=== PATIENT | female | born 1970 | race African-American/Black ===

== ENCOUNTER 2023-03-09 10:39 | Emergency (ER) | payer OTHER, SELFPAY ==
[2023-03-09 10:46] VITALS: BP 190/133
[2023-03-09 10:54] VITALS: BP 175/132
--- NOTE | 2023-03-09 11:07 | ED.GENMED ---
History of Present Illness
<Sara Dennison PA-C - Last Filed: 03/09/23 15:07>
General
Chief Complaint: Blood Pressure Problem
Source: patient
Exam Limitations: none
Time Seen by Provider: 03/09/23 11:07
Nursing documentation reviewed up to this point in time: agreed with
Travel History
Have you had any contact with someone who has COVID-19?: No
Do you have any symptoms of coronavirus? Fever > 100 degrees, chills, cough, shortness of breath, sore throat, loss of taste or smell, muscle aches, or headache?: No
History of Present Illness
History of Present Illness:
This is a 52-year-old female with no past medical history presenting emergency department today sent by her PCP for concerns of high blood pressure and tachycardia. Patient states that she went in for her yearly visit today when they noticed that
her blood pressure was in the 190s over the 130s with associated tachycardia. Patient states that she has intermittent headaches for the past few days as well as shortness of breath on exertion. Patient states that she has gained a lot of weight
in the past 2 years and states that anytime she is exert herself does have shortness of breath and feels it is related to her waking. At rest, she feels well. She currently admits to a mild headache, however these headaches usually improve when
she puts her glasses on. She denies chest pain, back pain,, dizziness, lightheadedness, recent syncopal episodes, nausea, vomiting. Does admit to some recent congestion and coughing, she states that she picked up something that her had.
She takes no medications daily and has no known drug allergies. She sees Sosa Peterson NP for primary care.
Review of Systems
<Sara Dennison PA-C - Last Filed: 03/09/23 15:07>
Review of Systems
All Other Systems: ROS reviewed and negative except as documented in HPI and ROS
Phy Exam
<Sara Dennison PA-C - Last Filed: 03/09/23 15:07>
Physical Exam
Physical Exam:
General: Patient appears well and is no acute distress
Skin: Skin is warm and dry, no rashes or lesions
HEENT: Head is normocephalic and atraumatic. No pharyngeal erythema, no tonsillar hypertrophy. No lymphadenopathy.
Cardiac: Tachycardia however regular rhythm and no murmurs
Pulm: normal respiratory effort, lung sounds are clear to auscultation bilaterally with no wheezes, rales, rhonchi
Peripheral vascular: Patient 2+ radial pulses bilaterally. 2+ dorsalis pedis pulses and posterior tibial pulses bilaterally. No lower extremity edema.
Neuro: AAOx3. CN II-XII intact. No involuntary movements noted, heel to curiel, finger to nose testing intact.
Course
<DEWEY Hernandez Last Filed: 03/09/23 15:07>
Orders/Labs/Results
Orders:
Orders
03/09/23 11:01
EKG [Electrocardiogram (*1)] Urgent
Reason for Study: Tachycardia
EKG- Treatment ONCE
03/09/23 11:25
Cardiac Monitoring- Treatment ONCE
Labetalol HCl [Trandate] 10 mg IV NOW STA
03/09/23 11:30
Labetalol HCl [Trandate] 20 mg .ROUTE .STK-MED ONE
03/09/23 11:32
CR Chest - 2 Views Urgent
Comment:
Reason For Exam: shortness of breath
03/09/23 11:37
CT Head W/o Iv Contrast Urgent
Comment:
Reason For Exam: headache, HTN
03/09/23 11:43
Complete Blood Count/With Diff Urgent
Comprehensive Metabolic Panel Urgent
Troponin I Urgent
03/09/23 11:46
Metoprolol [Lopressor] 25 mg PO NOW STA
Abnormal Lab Results
03/09/23
11:43
Hgb 11.7 L g/dL
(12.0-16.0)
Hct 36.1 L %
(37.0-47.0)
MCH 26.5 L pg
(27.0-31.0)
MCHC 32.4 L g/dL
(33.0-37.0)
RDW 15.9 H %
(11.5-14.5)
Plt Count 405 H 10^3/uL
(130-400)
Absolute Monos (auto) 0.8 H 10^3/uL
(0.1-0.6)
Lymphocytes % 18.0 L %
(20.5-51.1)
Monocytes % 11.2 H %
(1.7-9.3)
Glucose 114 H mg/dl
(70-99)
AST 412 H U/L
(14-36)
ALT 285 H U/L
(0-35)
03/09/23 11:43
03/09/23 11:43
Vital Signs
Initial and Last Documented VS:
Initial Vital Signs
Temp Pulse Resp BP Pulse Ox
98.3 F 96 18 190/133 98
03/09/23 10:46 03/09/23 10:46 03/09/23 10:46 03/09/23 10:46 03/09/23 10:46
Last Documented Vital Signs
Temp Pulse Resp BP Pulse Ox
98.8 F 87 20 159/99 97
03/09/23 10:54 03/09/23 13:15 03/09/23 13:15 03/09/23 12:30 03/09/23 13:15
<Montana Workman, DO - Last Filed: 03/09/23 15:41>
Orders/Labs/Results
Orders:
Orders
03/09/23 11:01
EKG [Electrocardiogram (*1)] Urgent
Reason for Study: Tachycardia
EKG- Treatment ONCE
03/09/23 11:25
Cardiac Monitoring- Treatment ONCE
Labetalol HCl [Trandate] 10 mg IV NOW STA
03/09/23 11:30
Labetalol HCl [Trandate] 20 mg .ROUTE .STK-MED ONE
03/09/23 11:32
CR Chest - 2 Views Urgent
Comment:
Reason For Exam: shortness of breath
03/09/23 11:37
CT Head W/o Iv Contrast Urgent
Comment:
Reason For Exam: headache, HTN
03/09/23 11:43
Complete Blood Count/With Diff Urgent
Comprehensive Metabolic Panel Urgent
Troponin I Urgent
03/09/23 11:46
Metoprolol [Lopressor] 25 mg PO NOW STA
Abnormal Lab Results
03/09/23
11:43
Hgb 11.7 L g/dL
(12.0-16.0)
Hct 36.1 L %
(37.0-47.0)
MCH 26.5 L pg
(27.0-31.0)
MCHC 32.4 L g/dL
(33.0-37.0)
RDW 15.9 H %
(11.5-14.5)
Plt Count 405 H 10^3/uL
(130-400)
Absolute Monos (auto) 0.8 H 10^3/uL
(0.1-0.6)
Lymphocytes % 18.0 L %
(20.5-51.1)
Monocytes % 11.2 H %
(1.7-9.3)
Glucose 114 H mg/dl
(70-99)
AST 412 H U/L
(14-36)
ALT 285 H U/L
(0-35)
03/09/23 11:43
03/09/23 11:43
Vital Signs
Initial and Last Documented VS:
Initial Vital Signs
Temp Pulse Resp BP Pulse Ox
98.3 F 96 18 190/133 98
03/09/23 10:46 03/09/23 10:46 03/09/23 10:46 03/09/23 10:46 03/09/23 10:46
Last Documented Vital Signs
Temp Pulse Resp BP Pulse Ox
98.8 F 87 20 159/99 97
03/09/23 10:54 03/09/23 13:15 03/09/23 13:15 03/09/23 12:30 03/09/23 13:15
<Sara Dennison PA-C - Last Filed: 03/09/23 15:07>
MDM/Problems Addressed
Differential Diagnosis Includes:
ddx: ACS, tension headache, pneumonia, migraine headache
MDM/Problems Addressed:
Headache
Dyspnea on exertion
High blood pressure
Tachycardia
Chronic conditions affecting care:
N/A
Acute Exacerbation and/or Progression of Chronic Illness:
N/A
<Sara Dennison PA-C - Last Filed: 03/09/23 15:07>
*Pulse Oximetry
Patient hypoxic: no
*EKG
Interpreted by ED Provider?: Yes
EKG Intrepretation Date: 03/09/23
Interpretation: abnormal
Comparison EKG: no comparison EKG present
Heart Rate: 109
Rate: tachycardiac
Rhythm: sinus
[place]: normal axis
Interval: normal interval
QRS Pattern: normal QRS
Ischemia: no ischemia
*Rechecker Interpretation
Rate: tachycardiac
Interpretation: abnormal
Heart Rate: 105
Rhythm: sinus
*Critical Care Note
Total Time (30-74mins, 75-104mins- exclusive of procedures): Not Applicable
Data Reviewed
Review of Other/Old Records Reveals: Records (No previous records to review)
Prescriptions/Medications Considered But Not Given:
n/a
Further Testing Considered But Not Given:
n/a
<Sara Dennison PA-C - Last Filed: 03/09/23 15:07>
Patient Management
Escalation/DeEscalation of care consider admission/obs:
This is a 52-year-old female with no past medical history presenting today from a wellness visit with her primary care provider with high blood pressure and tachycardia. Patient states that she also has been having intermittent headaches and
shortness of breath on exertion for the past few months. She denies palpitations. She denies fevers or chills. Her physical examination reveals tachycardia. Her CBC/CMP reveal no signs of end organ damage. Her CT scan of the head reveals no acute
abnormality. Her EKG shows no ischemic changes. Here in the emergency department, her blood pressure was initially 190/133 and her heart rate was 96. Her pressure came down to 159/99 and her heart rate 87 after a dose of metoprolol. Patient states
that she does have a follow-up appointment with her PCP next week. We will start her on metoprolol daily, and advised her to return if she starts to have chest pain, shortness of breath, changes to her vision, decreased urinary output, dizziness,
lightheadedness, or other concerning signs or symptoms.
<Sara Dennison PA-C - Last Filed: 03/09/23 15:07>
Update Note
Update Note:
11:15 am-- intially evaluated patient
ED Attending Note
<Sara Dennison PA-C - Last Filed: 03/09/23 15:07>
-
Portions of this chart may have been created with voice recognition software.� Occasional wrong word or��sound alike� substitutions may have occurred due to the inherent limitations of voice recognition software.
<[place] Workman, DO - Last Filed: 03/09/23 15:41>
ED Attending Note
Patient seen and examined by attending physician: Yes
I performed the substantive portion of visit, reviewed & personally made and approve the management plan that is documented in note by myself or ALEX.: Yes
I performed a history and physical exam of patient and discussed management with resident, I reviewed resident's note and agree with documented findings and plan of care.: Yes
ED Attending Note:
I have reviewed and agree with history and treatment plan by Sara Dennison. My exam revealed
Physical Exam
General: no apparent distress, not acutely ill, blood pressure 159/99
Neck: supple. no meningeal signs. normal posterior pharynx
Heart: s1/s2 regular rate and rhythm, no murmur. equal radial
pulses.
HEENT: Pupils equal round reactive to light, EOMI
Lungs: no acute respiratory distress. clear bilaterally
Abdomen: normal bowel sounds. not tender. no CVAT
Neuro: alert and oriented. no focal neurological deficits cranial nerves II through XII intact
Skin: no rash
Psychiatric: well kept. interactive and cooperative
Extremities: no edema. no calf tenderness. negative homans. good distal pulses
52-year-old female with elevated blood pressure tachycardia. Do not suspect ACS or PE. CTA and chest x-ray normal. Follow-up with primary care. Started on Toprol-XL 25.
Discharge Plan
Departure
Patient Disposition: Home (Routine Discharge)
Date of Disposition: 03/09/23
Time of Disposition: 13:07
Patient with high blood pressure during this ER visit?: Yes
Condition: Good
Discharge Problem:
High blood pressure
Instructions: BLOOD PRESSURE
Prescriptions:
New
metoprolol succinate 25 mg tablet extended release 24 hr
25 mg PO DAILY 30 Days Qty: 30 0RF
Referrals:
Sosa Peterson CRNP [Family Provider] -
Activity Restrictions/Additional Instructions:
As discussed, please follow-up with your primary care provider next week and keep the appointment you have.
We have sent a blood pressure medication to your pharmacy called Metoprolol. Please take 1 tablet once daily.
Please return emergency department should you experience chest pain, shortness of breath, dizziness, lightheadedness, intractable vomiting, shoulder pain, jaw pain, or other concerning signs or symptoms.
Interventions
Interventions:
*Risk Screen - Suicide Last Done: 03/09/23 10:54
*General Assessment Last Done: 03/09/23 10:54
*Neglect/Abuse Screening Last Done: 03/09/23 10:54
ED- Fall Risk Assessment Last Done: 03/09/23 11:40
*ED COVID-19 Vaccine History Last Done: 03/09/23 10:54
*Nursing Disposition Last Done: 03/09/23 13:30
ED- Cardiac Assessment Last Done: 03/09/23 11:40
ED- Neurological Assessment Last Done: 03/09/23 11:40
ED- Pulmonary Assessment Last Done: 03/09/23 11:40
Discharge Date and Time
Discharge Date/Time: 03/09/23 13:31
[2023-03-09 11:44] VITALS: BP 159/98; BMI 29.7
[2023-03-09 11:50] LABS: % Basophils 0.9 % (0-2); % Eosinophils 2.2 % (0-6); % Immature Granulocytes 0.3 % (0-0.5); % Monocytes 11.2 % (1.7-9.3); % Neutrophils 67.4 % (42.2-75.2); Absolute Basophils 0.1 10^3/uL (0-0.2); Absolute Eosinophils 0.2 10^3/uL (0-0.7); Absolute Lymphocytes 1.2 10^3/uL (1.2-3.4); Absolute Monocytes 0.8 10^3/uL (0.1-0.6); Absolute Neutrophils 4.7 10^3/uL (1.4-6.5); Hematocrit 36.1 % (37.0-47.0); Hemoglobin 11.7 g/dL (12.0-16.0); Mean Corp Hgb Conc. 32.4 g/dL (33.0-37.0); Mean Corpuscular Hgb 26.5 pg (27.0-31.0); Mean Corpuscular Volume 81.7 fL (81.0-99.0); Mean Platelet Volume 10.2 fL (7.4-10.4); Nucleated Red Blood Cells % 0 %; Platelet Count 405 10^3/uL (130-400); Red Blood Cell Count 4.42 10^6/uL (4.20-5.40); Red Cell Dist. Width 15.9 % (11.5-14.5); White Blood Cell Count 6.9 10^3/uL (4.8-10.8)
[2023-03-09] MEDS: LOPRESSOR 25 MG PO (11:50)
[2023-03-09 12:00] VITALS: BP 159/101
[2023-03-09 12:14] LABS: ALT (SGPT) 285 U/L (0-35); AST (SGOT) 412 U/L (14-36); Albumin 4.4 g/dl (3.5-5.0); Alkaline Phosphatase 85 U/L (38-126); Blood Urea Nitrogen 14 mg/dl (7-17); Carbon Dioxide 23 mmol/L (22-30); Chloride 105 mmol/L (98-107); Estimated Creatinine Clearance 85 ml/min; Glucose 114 mg/dl (70-99); Sodium 138 mmol/L (135-145); Total Bilirubin 0.7 mg/dl (0.2-1.3); Total Protein 7.6 g/dl (6.3-8.2); eGFR > 60.00
[2023-03-09 12:26] LABS: Troponin I 0.026 ng/ml
[2023-03-09 12:30] VITALS: BP 159/99
== END 2023-03-09 13:31 | disposition home or self-care (01) ==
LOC: EMR 10:39
PROVIDERS: Physician Assistant; EMERGENCY PHYSICIAN Emergency Medicine; FAMILY PHYSICIAN Nurse Practitioner Adult Health
DX: I10 Essential (primary) hypertension (principal)
CPT/HCPCS: 99285; 70450; 71046; 80053; 84484; 85025; 93005